=== PATIENT | male | born 1985 | race Caucasian/White ===

== ENCOUNTER 2016-07-21 16:27 | Emergency (ER) | payer SELFPAY ==
[2016-07-21] MEDS ORDERED: Ibuprofen PED LIQ* 100 MG/5 ML UDC PO ONE (17:33)
[2016-07-21] MEDS ORDERED: Tetan/Diph/Pertus SYR(Tdap)* 0.5 ML SYR(BOOSTRIX) use SYR IM ONE (17:33)
--- NOTE | 2016-07-21 17:41 | ED ---
Skin Complaint - HPI Summary HPI Summary: Pt here w/ Rt ring finger laceration while at work, prior to arrival. He was washing down a counter top where it meets the wall and sliced tip on a metal edge. Sore. Bleeding. Skin was very clean as he had his hands in soapy water prior to incident and counter was covered w/ soapy water - he was wiping this down to rinse counter. Applied pressure to area and bleeding has stopped. Denies numbness, tingling, weakness and has FROM. Not sure when he last received a tetanus vaccine. - History of Current Complaint Chief Complaint: EDLacSutureRecheck Time Seen by Provider: 07/21/16 17:06 Stated Complaint: FINGER LAC Hx Obtained From: Patient Pain Intensity: 1 - Allergy/Home Medications Allergies/Adverse Reactions: Allergies Allergy/AdvReac Type Severity Reaction Status Date / Time banana Allergy Rash Uncoded 07/21/16 16:49 PMH/Surg Hx/FS Hx/Imm Hx Previously Healthy: Yes Endocrine/Hematology History: Denies: Hx Anticoagulant Therapy, Hx Blood Disorders - Immunization History Date of Tetanus Vaccine: unknown Infectious Disease History: No Infectious Disease History: Denies: Hx of Known/Suspected MRSA, Traveled Outside the [place] in Last 30 Days - Family History Known Family History: Positive: None - Social History Occupation: Employed Full-time Lives: With Family Alcohol Use: Occasionally Hx Substance Use: No Substance Use Type: Reports: None Hx Tobacco Use: No Smoking Status (MU): Never Smoked Tobacco Review of Systems Musculoskeletal: Other - see HPI Skin: Other - see HPI Neurological: Negative Psychological: Normal All Other Systems Reviewed And Are Negative: Yes Physical Exam Triage Information Reviewed: Yes Vital Signs On Initial Exam: Initial Vitals Temp Pulse Resp BP Pulse Ox 97.8 F 81 16 134/65 100 07/21/16 16:39 07/21/16 16:39 07/21/16 16:39 07/21/16 16:39 07/21/16 16:39 Vital Signs Reviewed: Yes Appearance: Positive: Well-Appearing, No Pain Distress, Well-Nourished Skin: Positive: Warm, Dry - 0.5cm x 1mm laceration over Rt ring finger tip - well approximated, no bleeding Head/Face: Positive: Normal Head/Face Inspection Eyes: Positive: Normal, EOMI, Conjunctiva Clear ENT: Positive: Hearing grossly normal, Pharynx normal - mucosa moist Respiratory/Lung Sounds: Positive: Breath Sounds Present Cardiovascular: Positive: Normal, Pulses are Symmetrical in both Upper and Lower Extremities Musculoskeletal: Positive: Normal, Strength/ROM Intact Neurological: Positive: Normal, Sensory/Motor Intact, Alert, Oriented to Person Place, Time, CN Intact II-III Psychiatric: Positive: Normal Procedures - Laceration/Wound Repair 1 Location: upper extremity - Rt ring finger, distal tip Description: Linear Length, Depth and Shape: 0.5cm x 1mm Irrigated w/ Saline (ccs): 250 - hibaclens solution Laceration/Wound Explored: clean Closure: Skin Adhesive, SteriStrips Layer Closure?: No Sterile Dressing Applied?: No Diagnostics - Vital Signs Vital Signs Temp Pulse Resp BP Pulse Ox 07/21/16 16:39 97.8 F 81 16 134/65 100 - Laboratory Lab Statement: Any lab studies that have been ordered have been reviewed, and results considered in the medical decision making process. Course/Dx - Diagnoses Provider Diagnoses: Laceration of right ring finger Discharge - Discharge Plan Condition: Stable Disposition: HOME Patient Education Materials: Finger Laceration (ED), Skin Adhesive Care (ED), Steristrips (ED) Referrals: [facility] [Outside] Additional Instructions: Keep area clean, dry and steristrips intact until they naturally fall off on their own - do not remove prematurely You may use finger splint to protect your injury as well. Rest, ice and elevate if painful or swollen You may also take ibuprofen for pain Follow-up with PCP if wound does not heal well or if you develop redness, swelling, streaking, purulent drainage, fever or chills
[2016-07-21 17:53] VITALS: BP 116/61
== END 2016-07-21 17:49 | disposition home or self-care (01) ==
LOC: ED 16:27
DX: S61.214A Laceration without foreign body of right ring finger without damage to nail, initial encounter (principal); W45.8XXA Other foreign body or object entering through skin, initial encounter; Y93.89 Activity, other specified; Y92.9 Unspecified place or not applicable
CPT/HCPCS: 12001; 90471; 90715; 99282